=== PATIENT | male | born 1990 | race Caucasian/White ===

== ENCOUNTER 2016-11-11 23:01 | Emergency (ER) | payer OTHER ==
[~2016-11-11] VITALS: Ht 162.6 cm; Wt 92.5 kg
[~2016-11-11 23:01] MED LIST: IBUP-722 PO
[2016-11-11 23:05] VITALS: Ht 162.6 cm; Wt 92.5 kg
[2016-11-12] MEDS ORDERED: ACETAMINOPHEN 325 MG TAB PO ONE (01:30)
--- NOTE | 2016-11-12 02:16 | RADRPT ---
PROCEDURE: XR Facial Bones. CLINICAL INDICATION: Trauma, facial pain. TECHNIQUE: Three views of the facial bones are available for review. COMPARISON: No prior studies are available for comparison. FINDINGS: The facial bones are unremarkable. No nasal fracture is seen. No sinus air-fluid collection is seen. The soft tissues are unremarkable. The mandible as visualized is equally unremarkable. The zygomat ic arches grossly intact in a symmetric fashion. The orbital rims are unremarkable. IMPRESSION: 1. Unremarkable facial bones xray series. RPTAT: HTAR .Bryn Saez MD, MD Date Time Electronically viewed and signed by .Bryn Saez MD, MD on 11/12/2016 02:15 .R/
--- NOTE | 2016-11-12 02:35 | ERD ---
ER Documentation Chief Complaint Date/Time DATE: 11/12/16 TIME: 02:21 Chief Complaint left eye injury w/ hematoma hit head against the wall, HPI 26-year-old otherwise healthy male presents the emergency department after sustaining a mechanical fall fall and hitting his face on the corner of a table tonight. Patient states he was drinking alcohol prior to arrival when he tripped and fell. Patient denies any nausea, vomiting, loss of consciousness, dizziness, loss of vision, blurry vision, or pain. ROS All systems reviewed and are negative except as per history of present illness. Medications Home Meds Reported Medications Ibuprofen (MOTRIN) 800 Mg Tablet, 800 MG PO Y for PAIN 01/01/14 Allergies Allergies: Coded Allergies: No Known Allergy (Verified Allergy, Unknown, 12/02/10) PMhx/Soc Medical and Surgical Hx: pt denies Medical Hx History of Surgery: Yes (2008) Anesthesia Reaction: No Hx Neurological Disorder: No Hx Respiratory Disorders: No Hx Cardiac Disorders: No Hx Psychiatric Problems: No Hx Miscellaneous Medical Probl: No Hx Alcohol Use: Yes (12/29/13 beers) Hx Substance Use: No Hx Tobacco Use: No Smoking Status: Never smoker Physical Exam Vitals Vital Signs Date Time Temp Pulse Resp B/P Pulse Ox O2 Delivery O2 Flow Rate FiO2 11/11/16 23:05 98.5 98 20 135/74 98 Physical Exam Const: Well-developed, well-nourished, in no acute distress Head: 2.5 cm area of inflammation and bruising inferior to the left eye. No laceration, or abrasion Eyes: Normal Conjunctiva non-erythematous. No evidence of orbital rupture. EOMs intact, PERRLA, patient able to open and close eye fully. ENT: Normal External Ears, Nose and Mouth. Neck: Full range of motion At cervical spine, no midline cervical spine tenderness Resp: Clear to auscultation bilaterally Cardio: Regular rate and rhythm, no murmurs Abd: Soft, non tender, non distended. Normal bowel sounds Skin: No petechiae or rashes Back: No midline or flank tenderness Ext: No cyanosis, or edema Neur: Awake and alert Psych: Normal Mood and Affect Results 24 hrs Current Medications Medications (Trade) Dose Ordered Sig/Ragini Route PRN Reason Start Time Stop Time Status Last Admin Dose Admin Acetaminophen (Tylenol Tab) 650 mg ONCE ONCE PO 11/12/16 01:30 11/12/16 01:31 DC 11/12/16 01:51 Procedures/MDM PROCEDURE: XR Facial Bones. CLINICAL INDICATION: Trauma, facial pain. TECHNIQUE: Three views of the facial bones are available for review. COMPARISON: No prior studies are available for comparison. FINDINGS: The facial bones are unremarkable. No nasal fracture is seen. No sinus air- fluid collection is seen. The soft tissues are unremarkable. The mandible as visualized is equally unremarkable. The zygomatic arches grossly intact in a symmetric fashion. The orbital rims are unremarkable. IMPRESSION: 1. Unremarkable facial bones xray series. RPTAT: HTAR .Bryn Saez MD, MD Date Time Electronically viewed and signed by .Bryn Saez MD, MD on 11/12/2016 02:15 .R/ CC: SKYLAR LARA PA-C 26-year-old male presents the emergency department following a mechanical fall sustaining a facial contusion prior to arrival. Patient's physical exam consistent with left-sided facial contusion without involvement of the ocular structures or evidence of entrapment of orbital muscles. Patient does not appear to be altered and does not display any evidence of neurologic deficit. Patient denies any pain and does not complain of nausea, vomiting, confusion, dizziness. Patient denies any history of multiple head traumas. Patient does not have any history of seizures or neurologic disorders. X-ray unremarkable for fracture. The patient's headache is unlikely related to serious etiology. The patient does not exhibit any clinical signs or symptoms, and has no risk factors to suggest headache etiology such as subarachnoid hemorrhage, acute vertebral or carotid dissection, intracranial mass, epidural, subdural hematoma , dural venous sinus thrombosis, giant cell arteritis, or pseudotumor cerebri. At this time I do not believe a CT scan is warranted. Patient given strict return precautions. Patient refused prescription for any pain medication. Based on patient's history of present illness and physical examination the decision was made to discharge. The patient was re-evaluated after ED treatment and stabilizing measures, and symptoms have improved. There is no evidence of life threatening injuries or illnesses at this time. On re-examination, patient resting in no distress, stable vital signs, reports feeling better and safe for discharge with outpatient follow up with PMD in 1-2 days. Patient given return precautions. Based on patient's history of present illness and physical examination the decision was made to discharge. The patient was re-evaluated after ED treatment and stabilizing measures, and symptoms have improved. There is no evidence of life threatening injuries or illnesses at this time. On re-examination, patient resting in no distress, stable vital signs, reports feeling better and safe for discharge with outpatient follow up with PMD in 1-2 days. Patient given return precautions. SKYLAR LARA PA-C Nov 12, 2016 02:34
== END 2016-11-12 04:31 | disposition left against medical advice (07) ==
LOC: FTE 23:01
DX: S00.12XA Contusion of left eyelid and periocular area, initial encounter (principal); S09.93XA Unspecified injury of face, initial encounter; S09.90XA Unspecified injury of head, initial encounter; W01.190A Fall on same level from slipping, tripping and stumbling with subsequent striking against furniture, initial encounter; Y92.9 Unspecified place or not applicable
CPT/HCPCS: 70140